=== PATIENT | female | born 1995 | race Caucasian/White ===

== ENCOUNTER 2025-03-04 13:51 | Outpatient (CLI) | payer OTHER, SELFPAY ==
--- NOTE | 2025-03-04 14:00 | CRLHL7_ITS ---
For Patients: As a result of the Century Cures Act, medical imaging exams and procedure reports are released immediately into your electronic medical record. You may view this report before your referring provider. If you have questions, please contact your health care provider. INDICATION: Excessive and Frequent Menstruation COMPARISON: None. TECHNIQUE: 2D brian-scale and color Doppler images were acquired of the pelvis using a transabdominal and transvaginal approach. Transvaginal imaging performed to better visualize the endometrial stripe and ovaries. FINDINGS: Sonographic images demonstrate a normal size and smooth outer contour of the uterus. Uterus measures 8.1 cm in length by 4.5 cm in AP diameter by 4.8 cm in transverse dimension. The myometrium has a normal uniform echotexture. The endometrial lining measures 10.8 mm in composite thickness. The right ovary measures 3.9 x 2.2 x 2.5 cm in size and the left ovary measures 3.3 x 1.4 x 2.3 cm. The ovaries demonstrate normal arterial and venous blood flow on color Doppler analysis. There are no suspicious fluid collections within the cul-de-sac. Nonvascular hypoechoic cyst right ovary measures 2.0 x 1.8 x 1.6 cm. IMPRESSION: Endometrial thickness 10.8 millimeters. No endometrial fluid. No uterine fibroid. Benign right ovarian cyst measures 2 cm. Dictated by Toni Verma MD @ 03/04/2025 4:35:29 PM (Electronically Signed)
== END 2025-03-04 13:52 | disposition home or self-care (01) ==
LOC: US 13:52
PROVIDERS: Visit Provider Physician Assistant
DX: N92.0 Excessive and frequent menstruation with regular cycle (principal); R93.89 Abnormal findings on diagnostic imaging of other specified body structures; N83.201 Unspecified ovarian cyst, right side
CPT/HCPCS: 76830; 76856

== ENCOUNTER 2025-03-12 12:09 | Outpatient (CLI) | payer OTHER, SELFPAY ==
[2025-03-12 12:27] LABS: Hematocrit* 43.0 % (33.0-51.0); Hemoglobin* 14.4 gm/dL (12.0-16.0); Mean Corpuscular HGB Conc 34 gm/dL (32-36); Mean Corpuscular Hemoglobin 29 pg (26-34); Mean Corpuscular Volume 85 fL (80-100); Red Blood Count* 5.05 m/uL (4.00-5.20); White Blood Count* 5.89 K/uL (4.50-11.00)
[2025-03-12 12:32] LABS: Slide Review Reflex No
[2025-03-12 13:37] LABS: TSH With Reflex to FT4* 2.980 uIU/mL (0.270-4.200)
[2025-03-15 18:46] LABS: Follicle Stimulating Hormone 8.2 IU/L
[2025-03-16 16:28] LABS: Estradiol Premenol Female 33.4 pg/mL
== END 2025-03-12 12:10 | disposition home or self-care (01) ==
LOC: OP CLINIC 12:13
PROVIDERS: Referring Provider Physician Assistant; Visit Provider Physician Assistant
DX: N97.9 Female infertility, unspecified (principal)
CPT/HCPCS: 36415; 82670; 83001; 83520; 84146; 84443; 85027

== ENCOUNTER 2025-03-18 08:38 | Outpatient (CLI) | payer OTHER, SELFPAY ==
--- NOTE | 2025-03-18 09:15 | CRLHL7_ITS ---
For Patients: As a result of the Century Cures Act, medical imaging exams and procedure reports are released immediately into your electronic medical record. You may view this report before your referring provider. If you have questions, please contact your health care provider. Indication: Female infertility Technique: Hysterosalpingogram performed. Fluoroscopic time 25 seconds. IMPRESSION: No endometrial canal filling defect. Both fallopian tubes are patent with spillage of contrast into the peritoneum. Normal exam. Dictated by Toni Verma MD @ 03/18/2025 11:19:09 AM (Electronically Signed)
--- NOTE | 2025-03-18 09:58 | W.PM.GYNPROC ---
Procedure Note Date of procedure: 03/18/25 Will [facility] bill your pro fee for this procedure?: Yes Procedure Description: DATE: 03/18/25 UPT negative PREPROCEDURE DIAGNOSIS: Infertility POSTPROCEDURE DIAGNOSIS: 1. Infertility 2. Patent fallopian tubes bilaterally. NAME OF PROCEDURE: Hysterosalpingogram. ANESTHESIA: None. COMPLICATIONS: None. PROCEDURE: After obtaining verbal consent, the patient was placed in the dorsal lithotomy position on the x-ray table. An open-sided bivalve speculum was introduced into the vagina and the cervix easily visualized. The cervix and vagina were then prepped with Betadine. Os binder/cervical dilator used: No. A balloon tipped double-lumen catheter was then gently inserted through the cervical opening into the uterine cavity to the level of the fundus. The balloon was insufflated with 3 mL of air. The speculum was removed. The patient was repositioned in the supine position, covered, and the radiologist was called to the room. A hysterosalpingogram was then performed. A total of 20 cc of Optiray 300 water soluble contrast dye was injected through the double-lumen catheter under moderate pressure. There was immediate fill of the uterine cavity to the cornua and immediate fill of both fallopian tubes and free spillage of dye on both sides The balloon was deflated. The catheter was removed. The patient tolerated the procedure well, though she did have moderate cramping discomfort during and just after the procedure. She was discharged to home in stable condition and make an appointment with her physician to review all of her lab results and procedure results.
== END 2025-03-18 08:39 | disposition home or self-care (01) ==
LOC: RAD 08:38
PROVIDERS: Visit Provider Obstetrics & Gynecology
DX: N97.9 Female infertility, unspecified (principal)
CPT/HCPCS: 58340; 74740; A4649; Q9967

== ENCOUNTER 2025-03-30 15:42 | Outpatient (CLI) | payer OTHER, SELFPAY | END 2025-03-30 15:43 | disposition home or self-care (01) | LOC: NFLDREF 04-14 03:45 | PROVIDERS: Visit Provider Physician Assistant | DX: N97.9 Female infertility, unspecified (principal) | CPT/HCPCS: 84144 ==

== ENCOUNTER 2025-05-24 13:50 | Outpatient (CLI) | payer OTHER, SELFPAY | END 2025-05-24 13:51 | disposition home or self-care (01) | LOC: NFLDREF 05-31 14:28 | PROVIDERS: Visit Provider Physician Assistant | DX: E03.9 Hypothyroidism, unspecified (principal) | CPT/HCPCS: 84443 ==